=== PATIENT | female | born 1940 | race Caucasian/White ===

== ENCOUNTER 2019-05-04 06:36 | Inpatient (IN) ==
[2019-04-28 12:44] LABS: Appearance,Urine CLEAR; Bacteria,Urine 0 /hpf (0); Bilirubin,Urine NEG (NEG); Color,Urine STRAW; Glucose,Urine (UA) NEGATIVE (NEG); Ketones,Urine NEG (NEG); Leukocyte Esterase,Urine 25 /uL (NEG); Mucus,Urine FEW /hpf (0); Nitrate,Urine NEG (NEG); Protein,Urine NEG (NEG); Specific Gravity,Urine 1.017 (1.000-1.035); Urine Blood NEG mg/dL (<0.03); Urine Hyaline Cast 2 /lpf (0-2); Urine RBC 0 /hpf (0-1); Urine Squamous Epithelial Cell < 1 /hpf (0-4); Urine WBC 1 /hpf (0-4); Urobilinogen,Urine NEG (NEG)
[2019-04-28 14:55] LABS: Basophils # (Auto) 0 K/mcL (0.0-0.3); Basophils % (Auto) 0.7 % (0.0-2.0); Eosinophils # (Auto) 0.2 K/mcL (0.0-0.7); Eosinophils % (Auto) 2.9 % (0.0-7.0); Hematocrit 40.7 % (36.0-48.0); Hemoglobin 13.5 g/dL (12.0-15.0); Lymphocytes # (Auto) 1.1 K/mcL (1.5-4.8); Mean Cell Volume 94.8 fL (80.0-100.0); Mean Platelet Volume 7.7 fL (7.4-10.4); Monocytes # (Auto) 0.4 K/mcL (0.1-0.9); Monocytes % (Auto) 7.4 % (1.0-12.0); Platelet Count 230 K/mcL (140-440); Red Cell Distribution Width 13.1 % (11.5-14.5); WBC 5.4 K/mcL (4.5-11.0)
[2019-04-28 15:02] LABS: Blood Urea Nitrogen 20 mg/dl (8-23); Calcium 9.5 mg/dl (8.6-10.4); Carbon Dioxide 24 mmol/L (22-30); Chloride 106 mmol/L (96-108); Glomerular Filtration Rate 69; Glucose 90 mg/dL (70-105)
[2019-04-28 15:28] LABS: Prothrombin Time 12.7 sec (11.9-14.5)
[2019-05-04] MEDS ORDERED: oxyCODONE 10 MG TAB.ER.12H PO SCH (07:00)
[2019-05-04] MEDS ORDERED: CELECOXIB 200 MG CAPSULE PO SCH (07:00)
[2019-05-04] MEDS ORDERED: ACETAMINOPHEN 500 MG TABLET PO SCH (07:00)
[2019-05-04] MEDS ORDERED: PREGABALIN 75 MG CAPSULE PO SCH (07:00)
[2019-05-04] MEDS ORDERED: IPRATROPIUM/ALBUTEROL 3 ML AMPUL.NEB NEB PRN ×2 (07:00→11:20)
[2019-05-04] MEDS ORDERED: SCOPOLAMINE 1 PATCH PATCH TOPICAL PRN (07:00)
[2019-05-04] MEDS ORDERED: 0.9 % SODIUM CHLORIDE 9 ML, KETOROLAC 30 MG, ROPIVACAINE HCL/PF 49.5 ML, EPINEPHrine 0.... IJ SCH (07:00)
[2019-05-04] MEDS ORDERED: ceFAZolin 2 GM in DEXTROSE 5% IN WATER 50 ML IV SCH (07:00)
[2019-05-04 09:20] LABS: Appearance,Urine CLOUDY; Bacteria,Urine 0 /hpf (0); Bilirubin,Urine NEG (NEG); Color,Urine YELLOW; Culture Indicated,Urine NO; Glucose,Urine (UA) NEGATIVE (NEG); Ketones,Urine NEG (NEG); Leukocyte Esterase,Urine NEG /uL (NEG); Mucus,Urine FEW /hpf (0); Nitrate,Urine NEG (NEG); Protein,Urine NEG (NEG); Specific Gravity,Urine 1.018 (1.000-1.035); Urine Amorphous Crystals FEW /hpf (0); Urine Blood 0.03 mg/dL (<0.03); Urine Hyaline Cast 2 /lpf (0-2); Urine RBC 21 /hpf (0-1); Urine Squamous Epithelial Cell 0 /hpf (0-4); Urine WBC 0 /hpf (0-4); Urobilinogen,Urine NEG (NEG)
[2019-05-04] MEDS ORDERED: GENTAMICIN SULFATE 800 MG/20 ML VIAL IR ONE (09:26)
[2019-05-04] MEDS ORDERED: ONDANSETRON 4 MG/2 ML VIAL IV ONE (10:30)
[2019-05-04] MEDS ORDERED: LIDOCAINE HCL/PF 100 MG/5 ML SYRINGE IV ONE (10:30)
[2019-05-04] MEDS ORDERED: PROPOFOL 200 MG/20 ML VIAL IV ONE (10:30)
[2019-05-04] MEDS ORDERED: DEXAMETHASONE 10 MG/ML VIAL IV ONE (10:30)
[2019-05-04] MEDS ORDERED: TRANEXAMIC ACID 1,000 MG/10 ML VIAL IV ONE (10:30)
[2019-05-04] MEDS ORDERED: HYDROmorphone 2 MG/ML VIAL IV PRN ×2 (11:20→11:36)
[2019-05-04] MEDS ORDERED: diphenhydrAMINE 50 MG/ML VIAL IV PRN (11:20)
[2019-05-04] MEDS ORDERED: LACTATED RINGERS 250 ML IV PRN (11:20)
[2019-05-04] MEDS ORDERED: PROMETHAZINE 25 MG/ML VIAL IV PRN (11:20)
[2019-05-04] MEDS ORDERED: fentaNYL 100 MCG/2 ML VIAL IV PRN (11:20)
[2019-05-04] MEDS ORDERED: ONDANSETRON 4 MG/2 ML VIAL IV PRN ×2 (11:20→11:36)
[2019-05-04] MEDS ORDERED: BENZOCAINE/MENTHOL 1 LOZENGE PO PRN ×2 (11:20→11:36)
[2019-05-04] MEDS ORDERED: NALOXONE HCL 0.4 MG/ML VIAL IV PRN (11:20)
[2019-05-04] MEDS ORDERED: FLUMAZENIL 0.1 MG/ML ML IV PRN (11:20)
[2019-05-04] MEDS ORDERED: MEPERIDINE 25 MG/ML SYRINGE IV PRN (11:20)
[2019-05-04] MEDS ORDERED: LACTATED RINGERS 1,000 ML IV SCH (11:30)
--- NOTE | 2019-05-04 11:35 | Brief Operative Note ---
Date of procedure: 05/04/19 Pre-op diagnosis: left hip djd Post-op diagnosis: same Procedure: Left total hip total hip Grafts/Implants: Yes Anesthesia: GETA Surgeon: Obi Leigh Sales Correspondent: Wilbert Borja Estimated blood loss (cc): 100 Specimens Removed/Pathology: none sent Condition: stable Disposition: PACU
[2019-05-04] MEDS ORDERED: KETOROLAC 15 MG/ML VIAL IV PRN (11:36)
[2019-05-04] MEDS ORDERED: POLYETHYLENE GLYCOL 3350 17 GM PACKET PO PRN (11:36)
[2019-05-04] MEDS ORDERED: HYDROcodone/APAP 10/325MG TABLET PO PRN (11:36)
[2019-05-04] MEDS ORDERED: FLEETS ADULT ENEMA PR PRN (11:36)
[2019-05-04] MEDS ORDERED: BISACODYL 10 MG SUPP.RECT PR PRN (11:36)
[2019-05-04] MEDS ORDERED: TRANEXAMIC ACID 1,000 MG/10 ML VIAL IV SCH (11:36)
[2019-05-04] MEDS ORDERED: ACETAMINOPHEN 325 MG TABLET PO PRN (11:36)
[2019-05-04] MEDS ORDERED: MAGNESIUM HYDROXIDE 30 ML ORAL.SUSP PO PRN (11:36)
[2019-05-04] MEDS: LACTATED RINGERS 1,000 ML IV SCH ×2 (12:34→22:19)
[2019-05-04] MEDS: IBUPROFEN 800 MG TABLET PO SCH ×2 (12:42→17:04)
[2019-05-04] MEDS: 0.9 % SODIUM CHLORIDE 10 ML SYRINGE IV SCH ×2 (12:45→22:19)
--- NOTE | 2019-05-04 12:47 | XRay Report ---
CLINICAL INFORMATION: Post-op Total Hip COMPARISON: None. FINDINGS: Right total hip prosthesis is in near-anatomic alignment with slightly more anteversion is typically seen with a prosthetic acetabulum. Mild degenerative change in both SI joints and moderate degenerative changes left hip. Soft tissue swelling over the surgical site as expected. IMPRESSION: Negative Interpreted and Authenticated by: Navjot Villa 05/04/19
--- NOTE | 2019-05-04 13:11 | XRay Report ---
CLINICAL INFORMATION: right total hip arthroplasty COMPARISON: None. FINDINGS: Intraoperative film shows right prosthetic femoral stem and acetabular cup to be in near-anatomic alignment. No evidence yet of femoral head prostheses. No osseous abnormalities. Slight downward tilt of the left hemipelvis noted. IMPRESSION: Incomplete prostatic right hip components - anatomically aligned Interpreted and Authenticated by: Navjot Villa 05/04/19
--- NOTE | 2019-05-04 14:08 | Operative Note ---
DATE OF OPERATION: 05/04/2019 PREOPERATIVE DIAGNOSIS: Right failed hemiarthroplasty. POSTOPERATIVE DIAGNOSIS: Right failed hemiarthroplasty. PROCEDURE: Right hip conversion from a hemiarthroplasty to a total hip arthroplasty revision. SURGEON: Obi Leigh MD SURG PHYSICIAN ASST: Wilbert Borja PA-C. This provider's expertise and technical skill were required throughout the case. The KJ assisted with preoperative coordination, intraoperative retraction, wound closure, dressing and splint application, as well as postoperative documentation and care coordination. ANESTHESIA: General LMA anesthesia. IMPLANTS PLACED: A 48 mm [place] cup with a standard liner and a [employer] 36 mm ball +12 neck length. ESTIMATED BLOOD LOSS: About 100 mL COMPLICATIONS: None. DESCRIPTION OF PROCEDURE: After being brought to the operating room, she was turned into a left lateral position. The patient had the right hip sterilely prepped and draped in the usual sterile fashion. We confirmed this as the operative site. We placed Ioban over the skin after being sterilely prepped and draped and made an incision through the prior scar. This allowed us to identify the gluteus yenifer which was retracted and we identified the posterior capsule. This was released. There was good healing throughout without any signs of infection. We released the capsule where there was quite a bit of fluid. We then tagged these structures and then dislocated the hip. The ball was removed without difficulty and then we checked the femur for stability. This seemed to be stable to stress test and there was no motion of the implant compared to the bone. Once we can confirmed the alignment of the stem was in 15 to 20 degrees of anteversion and was stable, this was subluxed anteriorly. We removed the remnants of some of the labrum and spurs. We then reamed up to the size 48 cup. The cup was placed and one 30 mm screw with excellent purchase was placed. Once done, we then irrigated and placed a non-hooded liner, a 36 mm liner was placed in the ball. We irrigated thoroughly and then trialed different components, size 4; size 8; and 12. The 12 was most appropriate for leg length and alignment. We irrigated and took x-rays twice just to confirm the alignment. Once done, we irrigated thoroughly and then repaired the capsule posteriorly with #2 Ethibond, closed the fascial layer with #1 Stratafix and then closed the skin with Stratafix and adhesive closure. The patient tolerated this well. There were no complications. Blood loss was than 100 mL. RBH:rachael Job ID: [id number] Doc ID: [id number] Obi Leigh MD
[2019-05-04] MEDS: traMADol 50 MG TABLET PO PRN (19:53)
[2019-05-04] MEDS ORDERED: TEMAZEPAM 15 MG CAPSULE PO PRN (21:00)
[2019-05-04] MEDS ORDERED: SENNOSIDES 1 TABLET PO SCH (21:00)
[2019-05-04] MEDS ORDERED: LORazepam 1 MG TABLET PO PRN (21:00)
[2019-05-04] MEDS: ASPIRIN 325 MG ENTERIC COATED TABLET PO SCH (21:24)
[2019-05-04] MEDS: DOCUSATE SODIUM 100 MG CAPSULE PO SCH (21:24)
[2019-05-05] MEDS: traMADol 50 MG TABLET PO PRN (05:13)
[2019-05-05] MEDS: 0.9 % SODIUM CHLORIDE 10 ML SYRINGE IV SCH (05:13)
[2019-05-05] MEDS ORDERED: LEVOTHYROXINE 50 MCG TABLET PO SCH (07:30)
--- NOTE | 2019-05-05 07:38 | Orthopedic Progress Note ---
Subjective Patient information: Note initiated : 05/05/19 at 7:38 am Service Date, if different from initiated Date: [] Patient: Ambreen Resendiz 79 y/o F admitted on 05/04/19 for Right Total Hip Arthroplasty Converting From. Chief Complaint: [Pt is stable this morning on post operative day 1 without any significant concerns or complaints. Patients vital signs have remained stable. Patients dressing is dry and is grossly intact from a shree rovascular and motor standpoint. Patients 10 point ROS is otherwise negative. ] Objective Vital signs: Vital Signs Temp Pulse Resp BP Pulse Ox 05/05/19 04:00 98.1 F 64 14 112/55 93 05/04/19 23:45 98.1 F 75 18 113/51 96 05/04/19 19:55 98.2 F 78 20 129/56 94 05/04/19 16:00 97.4 F 81 18 147/70 95 05/04/19 15:36 98 05/04/19 15:10 98.0 F 79 18 135/60 94 05/04/19 14:20 76 18 131/61 97 05/04/19 13:50 72 18 164/68 98 05/04/19 13:10 70 18 142/62 100 05/04/19 12:55 70 18 140/63 96 05/04/19 12:40 70 16 139/55 96 05/04/19 12:25 97.6 F 74 16 142/62 98 05/04/19 12:12 97.6 F 75 12 136/48 98 05/04/19 11:57 97.7 F 75 15 133/49 100 05/04/19 11:52 71 11 L 125/43 100 05/04/19 11:47 75 11 L 149/46 100 05/04/19 11:42 97.5 F 80 12 164/48 99 Intake and Output 05/04/19 05/05/19 05/05/19 21:59 05:59 13:59 Intake Total 1460 1225 Output Total 800 1050 Balance 660 175 Intake: IV 1000 Lactated Ringers 1,000 ml @ 100 1000 mls/hr IV .Q10H JESSIE Rx#: [id number] Oral 1460 225 Output: Void Amount 800 1050 Other: Meal Dinner Percent of Meal Consumed 100% Feeding Ability Independent Urine Appearance Clear Clear Urine Color Bright Yellow Pale Urine Odor Normal Weight 128 lb 8 oz Intake & Output: Intake & Output 05/04/19 05/05/19 05/05/19 21:59 05:59 13:59 Intake Total 1460 1225 Output Total 800 1050 Balance 660 175 Weight 128 lb 8 oz Intake: IV 1000 Lactated Ringers 1,000 ml @ 100 1000 mls/hr IV .Q10H JESSIE Rx#: [id number] Oral 1460 225 Output: Void Amount 800 1050 Other: Meal Dinner Percent of Meal Consumed 100% Feeding Ability Independent Urine Appearance Clear Clear Urine Color Bright Yellow Pale Urine Odor Normal Incision: Yes healing Incision clean and dry: Yes Dressing: Yes clean Weight bearing status: full Neurological exam IM: Yes motor sensory intact, Yes neurovascular intact Extremities exam IM: Yes Foot pink and warm, Yes neurovascular intact - Labs CBC & BMP: 05/05/19 04:39 04/28/19 10:02 Labs: Orthopedic Labs 04/28/19 10:02 PT 12.7 INR 1.0 APTT 32 05/05/19 04/28/19 04:39 10:02 Hgb 13.5 Hct 30.7 L 40.7 Assessment and Plan (1) Hx of total hip arthroplasty The patient has been educated regarding dressing care, Physical Therapy recomm endations, home exercises, restrictions, and follow up appointments. The patient has had all necessary DME prescribed. The patient has remained relatively stable during their hospital course. Leave Dermabond patch intact until followup Status: Acute
--- NOTE | 2019-05-05 07:41 | Discharge Summary ---
Ortho Discharge - DA - Patient Instructions Diet: Regular Diet Activity: activity as tolerated, weight bearing as tolerated Total Hip Protocol: Follow activity instructions as provided by Physical Therapy. Dressing Care: May shower in 2 days - Problem Maintenance (1) Hx of total hip arthroplasty Status: Acute - Follow Up Plan Follow Up Appointments: Wilbert Borja PA-C [Physician Imaging Engineer] - 05/19/19 11:20 am Disposition: Home, Self-Care Prognosis: Good Rehab Potential: Good I certify that the patient requires SNF services: No Overall status at discharge: patient is progressing back to baseline - Orders For Discharge Prescriptions: Docusate Sodium [Colace] 100 mg PO BID #60 cap Transmission Status: Pending to [facility] Aspirin [Ecotrin] 325 mg PO BID #60 tab.ec Transmission Status: Pending to [facility] HYDROcodone/APAP 10/325MG [Crane 10-325Mg] 1 - 2 tab PO Q4HP PRN #75 tab PRN Reason: Pain Level 3-6 Prescription Printed
[2019-05-05] MEDS: LACTATED RINGERS 1,000 ML IV SCH (07:47)
[2019-05-05] MEDS: DOCUSATE SODIUM 100 MG CAPSULE PO SCH (07:52)
[2019-05-05] MEDS: ASPIRIN 325 MG ENTERIC COATED TABLET PO SCH (07:52)
[2019-05-05] MEDS: IBUPROFEN 800 MG TABLET PO SCH (08:03)
[2019-05-05] MEDS ORDERED: SIMVASTATIN 20 MG TABLET PO SCH (09:00)
== END 2019-05-05 10:53 | disposition home or self-care (01) | DRG 468 ==
LOC: MEDSUR 06:36
PROVIDERS: ADMIT Orthopaedic Surgery; ATTEND Orthopaedic Surgery